=== PATIENT | male | born 1990 | race Caucasian/White ===

== ENCOUNTER 2023-06-19 16:46 | Emergency (ER) | payer SELFPAY ==
[2023-06-19] MEDS ORDERED: Silver Sulfadiazine 1% Crm 50 GM Tube TOP ONE (17:42)
[2023-06-19] MEDS ORDERED: Ondansetron 4 MG Tab.DIS PO ONE (17:43)
[2023-06-19] MEDS ORDERED: HYDROmorphone 1 MG/ML Syringe IM ONE (17:43)
== END 2023-06-19 18:35 | disposition home or self-care (01) ==
LOC: MW.ED 16:46
DX: T23.201A Burn of second degree of right hand, unspecified site, initial encounter (principal); T31.0 Burns involving less than 10% of body surface; I10 Essential (primary) hypertension; W40.1XXA Explosion of explosive gases, initial encounter
CPT/HCPCS: 96372; 99283; A9270; J1170